=== PATIENT | male | born 1945 | race Caucasian/White ===

== ENCOUNTER 2021-11-23 17:59 | Emergency (ER) | payer MEDICARE ==
[2021-11-23] MEDS ORDERED: Ibuprofen 800 MG TAB ONE (19:13)
== END 2021-11-23 19:33 | disposition home or self-care (01) ==
LOC: BURERS 17:59
DX: S50.02XA Contusion of left elbow, initial encounter (principal); I10 Essential (primary) hypertension; E11.9 Type 2 diabetes mellitus without complications; W01.198A Fall on same level from slipping, tripping and stumbling with subsequent striking against other object, initial encounter

== ENCOUNTER 2021-12-22 09:47 | Outpatient (CLI) | payer MEDICARE | END 2021-12-22 09:48 | disposition home or self-care (01) | LOC: BURRAD 09:47 | PROVIDERS: ATTEND Family Medicine | DX: M25.532 Pain in left wrist (principal) ==